=== PATIENT | female | born 1975 | race Caucasian/White ===

== ENCOUNTER 2024-03-14 09:59 | Emergency (ER) | payer MEDICAID, OTHER ==
[~2024-03-14] VITALS: Ht 170.2 cm; Wt 85.4 kg
[2024-03-14 10:21] VITALS: BP 108/72; PULSE 73; RESP 17; TEMP 97.9; O2SAT 97
[2024-03-14] MEDS: ACETAMINOPHEN EXTRA STRENGTH 500 MG TAB PO ONE (11:25)
[2024-03-14] MEDS: METOCLOPRAMIDE 10 MG/2 ML INJ VIAL IM ONE (11:26)
[2024-03-14 12:53] VITALS: BP 135/68; PULSE 88; RESP 20; TEMP 97.3; O2SAT 99
== END 2024-03-14 12:54 | disposition home or self-care (01) ==
LOC: MED 09:59
DX: R51.9 Headache, unspecified (principal); R11.2 Nausea with vomiting, unspecified; R19.7 Diarrhea, unspecified; I10 Essential (primary) hypertension
CPT/HCPCS: 96372; 99283; J2765